=== PATIENT | male | born 1945 | race Caucasian/White ===

== ENCOUNTER 2019-07-29 11:42 | Emergency (ER) | payer MEDICARE, OTHER ==
[~2019-07-29] VITALS: Ht 177.8 cm; Wt 83.9 kg
--- NOTE | 2019-07-29 11:50 | NUR ---
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 and son at bedside. skin intact, waiting to be seen by md.
--- NOTE | 2019-07-29 11:52 | NUR ---
COSMETIC SURGEON ET BEDSIDE
[2019-07-29 11:55] LABS: BASOPHILS # (AUTO) 0.1 /CMM (0.0-0.2); EOSINOPHILS % (AUTO) 3.5 % (0.0-6.0); HEMATOCRIT 46 % (39-51); LYMPHOCYTES # (AUTO) 2.7 /CMM (0.8-4.8); LYMPHOCYTES % (AUTO) 30.4 % (20.0-44.0); MEAN CORPUSCULAR HGB CONC 35 g/dl (31.0-36.0); MEAN CORPUSCULAR VOLUME 86 fL (80-96); MONOCYTES # (AUTO) 1.1 /CMM (0.1-1.30); NEUTROPHILS # (AUTO) 4.7 /CMM (1.8-8.9); NEUTROPHILS % (AUTO) 53.1 % (43.0-81.0); PLATELET COUNT (AUTO) 232 /CMM (150-450); RED BLOOD CELL COUNT(AUTO) 5.39 MIL/uL (4.5-6.0); WHITE BLOOD COUNT (AUTO) 8.8 K/uL (4.3-11.0)
--- NOTE | 2019-07-29 11:59 | NUR ---
Swetha francis in [facility] - 07/29/19 at 1200 by ALEX NADER CALHOUN
--- NOTE | 2019-07-29 11:59 | NUR ---
Code STEMI ER BED 8
[2019-07-29 12:03] LABS: CALCIUM, SERUM 9.2 mg/dL (8.5-10.1); CARBON DIOXIDE 24 mmol/L (21-32); CHLORIDE 102 mmol/L (98-107); CREATININE 1.3 mg/dL (0.6-1.3); GLUCOSE 134 mg/dL (74-106); POTASSIUM 2.9 mmol/L (3.5-5.1); SODIUM SERUM 138 mmol/L (136-145); UREA NITROGEN, BLOOD 20 mg/dL (7-18)
--- NOTE | 2019-07-29 12:06 | NUR ---
CARDIOLOGY RN AT BEDSIDE
--- NOTE | 2019-07-29 12:06 | NUR ---
endoscopy tech at bedside
[2019-07-29] MEDS ORDERED: ASPIRIN 81 MG TAB.CHEW ONE ×2 (12:11)
[2019-07-29 12:13] VITALS: BP 180/115
[2019-07-29] MEDS ORDERED: OLME20TA13 PO (12:13)
[2019-07-29] MEDS ORDERED: [UNRECOGNIZED DRUG - REMARK] PO (12:13)
[2019-07-29] MEDS ORDERED: UBID50TA3 PO (12:13)
--- NOTE | 2019-07-29 12:14 | NUR ---
[facility] at bedside to transfer pt to [facility]
--- NOTE | 2019-07-29 12:18 | NUR ---
Patient picked up by [facility], patient will be transported to [facility].
[2019-07-29] MEDS ORDERED: ASPIRIN 81 MG TAB.CHEW PO ONE (12:30)
== END 2019-07-29 12:24 ==
LOC: ER 11:45
DX: I21.3 ST elevation (STEMI) myocardial infarction of unspecified site (principal); R07.89 Other chest pain; E87.6 Hypokalemia; I10 Essential (primary) hypertension; Z79.899 Other long term (current) drug therapy
CPT/HCPCS: 36415; 71045-TC; 80048-TC; 84484-TC; 85025-TC